=== PATIENT | male | born 1985 ===

== ENCOUNTER 2017-11-06 03:40 | Emergency (ER) | payer BC, OTHER ==
[2017-11-06 04:13] VITALS: BP 145/81; PULSE 60; RESP 17; TEMP 97.8; O2SAT 99
[2017-11-06] MEDS ORDERED: Lidocaine 1% w Epi 1:100,000 Inj ONE (04:36)
[2017-11-06] MEDS ORDERED: Lidocaine 1% Inj (20ml) ONE (04:38)
--- NOTE | 2017-11-06 05:42 | ED PDOC ---
HPI: General Adult Time Seen by Provider: 11/06/17 04:24 Chief Complaint (Nursing): Abnormal Skin Integrity Chief Complaint (Provider): Abnormal Skin Integrity History Per: Patient, Other (girlfriend at beside) History/Exam Limitations: no limitations Onset/Duration Of Symptoms: Mins Additional Complaint(s): 32 y/o male presents to the ED for evaluation of lip injury. Patient states that he was walking home with friends when he stumbled and tripped, hitting his upper lip against a concrete step. Girlfriend is at bedside who states the patient is acting normal. Denies loss of consciousness, headache, dizziness, dental pain, extremity pain, visual changes or any further medical complaints. Patient presents for wound evaluation. Tetanus: UTD PMD: [place] state ([place]) Past Medical History Reviewed: Historical Data, Nursing Documentation, Vital Signs Vital Signs: Last Vital Signs Temp 97.8 F 11/06/17 03:55 Pulse 60 11/06/17 03:55 Resp 17 11/06/17 03:55 BP 145/81 11/06/17 03:55 Pulse Ox 99 11/07/17 12:41 - Medical History PMH: No Chronic Diseases - Family History Family History: States: Unknown Family Hx - Allergies Allergies/Adverse Reactions: Allergies Allergy/AdvReac Type Severity Reaction Status Date / Time No Known Allergies Allergy Verified 11/06/17 04:38 Review of Systems ROS Statement: Except As Marked, All Systems Reviewed And Found Negative (As per HPI, otherwise negative) Constitutional: Positive for: Other (upper lip injury) Eyes: Negative for: Vision Change Musculoskeletal: Negative for: Other (extremity pain) Neurological: Negative for: Headache, Dizziness, Other (loss of consciousness) Physical Exam - Reviewed Nursing Documentation Reviewed: Yes Vital Signs Reviewed: Yes - Physical Exam Appears: Positive for: Well, Non-toxic, No Acute Distress Head Exam: Positive for: ATRAUMATIC, NORMOCEPHALIC Skin: Positive for: Warm, Dry Eye Exam: Positive for: EOMI, PERRL ENT: Positive for: Normal ENT Inspection, Other (Dentition intact and nontender) Neck: Positive for: Painless ROM, Supple Cardiovascular/Chest: Positive for: Regular Rate, Rhythm. Negative for: Murmur Respiratory: Positive for: Normal Breath Sounds. Negative for: Decreased Breath Sounds, Accessory Muscle Use, Respiratory Distress Gastrointestinal/Abdominal: Positive for: Bowel Sounds, Soft. Negative for: Tenderness, Distended, Guarding Back: Positive for: Normal Inspection. Negative for: Vertebral Tenderness Extremity: Positive for: Normal ROM Neurologic/Psych: Positive for: Alert, jackspooler II-XII (grossly intact), Oriented (x3 ), Mood/Affect (appropriate), Cerebellar Tests (intact), Gait (steady in ED). Negative for: Motor/Sensory Deficits, Aphasia, Facial Droop Comments: Lip Laceration exam: --1.25cm linear, diagonal laceration noted to the left side of upper lip --(+)vermilion border involvement --No swelling or tenderness --No active bleeding --No ecchymosis - ECG O2 Sat by Pulse Oximetry: 99 (RA) Pulse Ox Interpretation: Normal Medical Decision Making Medical Decision Making: Time: 05:00 Initial Impression: Lip laceration s/p fall Plan: -Laceration repair -Patient declined pain medication 510 Laceration repair performed. See procedure note below. Patient tolerated procedure well. 0535 On re-evaluation, patient reports improvement of symptoms. On exam, patient remains AAOx3, in no acute distress. On exam, neck is supple, lungs CTA, cardiac RRR, abdomen is soft and non-tender, neuro exam shows no focal findings. Dx of lip laceration d/w the patient. Based on history, exam and diagnostic results plan will be for discharge and outpatient follow up. Advised to follow up with primary care physician in 1-2 days without fail. Return to the emergency room at any time for any new or worsening symptoms. Patient states he fully agrees with and understands discharge instructions. States that he agrees with the plan and disposition. Verbalized and repeated discharge instructions and plan. I have given the patient opportunity to ask any additional questions. Scribe Attestation: Documented by Tj Ruiz acting as a scribe for VANE Gruber. MD Garcia Attestation: All medical record entries made by the Radha were at my direction and personally dictated by me. I have reviewed the chart and agree that the record accurately reflects my personal performance of the history, physical exam, medical decision making, and the department course for this patient. I have also personally directed, reviewed, and agree with the discharge instructions and disposition. Procedures - Laceration/Wound Repair Lip Laceration Wound Length (cm): 1.25 Wound's Depth, Shape: superficial, linear (diagonal) Wound Explored: no foreign body removed Irrigated w/ Saline (ccs): 30 Betadine Prep?: No Anesthesia: 1% Lidocaine Volume Anesthetic (ccs): 2 Wound Debrided: minimal Wound Repaired With: Sutures Suture Size/Type: 5:0 (vicryl) Number of Sutures: 3 Layer Closure?: No Wound Complexity: Simple Sterile Dressing Applied?: No Disposition - Clinical Impression Clinical Impression: Laceration of lip without complication - Patient ED Disposition Is Patient to be Admitted: No Counseled Patient/Family Regarding: Diagnosis, Need For Followup - Disposition Disposition: Routine/Home Disposition Time: 05:36 Condition: STABLE Additional Instructions: FOLLOW UP WITH PMD IN 1-2 DAYS FOR WOUND CHECK. SEEK MEDICAL ATTENTION IMMEDIATELY WITH ANY SIGNS OF INFECTION. Instructions: Wound Care, Laceration Repair With Stitches (DC) Forms: [employer] (Danish) Print Language: POLISH - POA Present On Arrival: None
== END 2017-11-06 06:00 | disposition home or self-care (01) ==
LOC: H.ER 03:40
DX: S01.511A Laceration without foreign body of lip, initial encounter (principal); W19.XXXA Unspecified fall, initial encounter; Y92.89 Other specified places as the place of occurrence of the external cause